=== PATIENT | female | born 1965 ===

== ENCOUNTER 2018-03-24 10:36 | Emergency (ER) | payer OTHER ==
[2018-03-24 11:02] VITALS: RESP 18; TEMP 98.2
--- NOTE | 2018-03-24 12:22 | C.PDOC ---
History Of Present Illness 52 year old female presents to the ED for evaluation of worsening right facial swelling. Patient reports recently arriving from [facility] 3 weeks ago, the swelling normally resolves with Zyrtec prescribed in [facility]. Last night the facial swelling began, she notes taking an unknown medication with no improvement. Denies fever, nausea, vomiting, headache, shortness of breath, chest pain, trouble swallowing or breathing or any other associated symptoms. Time Seen by Provider: 03/24/18 11:19 Chief Complaint (Nursing): Allergic Reaction History Per: Patient History/Exam Limitations: no limitations Onset/Duration Of Symptoms: Hrs Current Symptoms Are (Timing): Still Present Past Medical History Reviewed: Historical Data, Nursing Documentation, Vital Signs Vital Signs: Last Vital Signs Temp 98.2 F 03/24/18 10:53 Pulse 69 03/24/18 10:53 Resp 18 03/24/18 10:53 BP 126/76 03/24/18 10:53 Pulse Ox 96 03/24/18 10:53 Family History: States: Unknown Family Hx - Social History Hx Alcohol Use: Yes Hx Substance Use: No - Immunization History Hx Tetanus Toxoid Vaccination: No Hx Influenza Vaccination: No Hx Pneumococcal Vaccination: No Review Of Systems Constitutional: Positive for: Other (right facial swelling ). Negative for: Fever Cardiovascular: Negative for: Chest Pain Respiratory: Negative for: Shortness of Breath Gastrointestinal: Negative for: Nausea, Vomiting Neurological: Negative for: Headache Physical Exam - Physical Exam Appears: Well, Non-toxic, No Acute Distress Skin: Normal Color, Warm, Dry Head: Atraumatic, Normacephalic, Swelling (mild, to the right side of the face.) Eye(s): bilateral: Normal Inspection, PERRL, EOMI Nose: Normal Oral Mucosa: Moist Tongue: Normal Appearing, No Swelling Lips: Normal Appearing, No Swelling Neck: Normal ROM, Supple Neurological/Psych: Oriented x3, Normal Speech, Normal Motor, Normal Sensation, Normal Reflexes ED Course And Treatment O2 Sat by Pulse Oximetry: 96 (RA) Pulse Ox Interpretation: Normal Medical Decision Making Medical Decision Making: pt with multiple episodes right sided facial swelling that comes and goes for years with no known inciting factors, take otc antihistamines (zyrtec). and it resolves on its own not associated with trouble breathing or swallowing. pt has never seen a physician for this. [place] the [place] and brought to ed by daughter for evaluation of this, most recent episode started yesterday and not better after taking unknown otc medicine here. tx with benadryl and prednisone, keep diary,.f/u pmd Plan: -Benadryl Prednisone Progress/Update: Patient stable for discharge home. Prescribed Benadryl and Prednisone. Disposition Counseled Patient/Family Regarding: Diagnosis, Need For Followup, Rx Given - Disposition Referrals: [facility] [Outside] Disposition: HOME/ ROUTINE Disposition Time: 12:43 Condition: GOOD Additional Instructions: Por favor, tome los medicamentos segn lo prescrito. Mantener un diario de los alimentos consumidos. Medicamentos tpicos, jabones o cremas utilizados cuando esta hinchazn vuelve a ocurrir. Seguimiento romero pronto hilda sea posible en la clnica mdica. Regrese a la bhavin de emergencias por cualquier hinchazn en los labios, la lengua o la respiracin toruble o tragar. Please take medications as prescribed. Keepo diary of foods eaten. topical medications, soaps or creams used when this swelling happens again. Follow up as soon as possible in medical clinic. Return to ER for any swelling to lips, tongue, or toruble breathing or swallowing. Prescriptions: DiphenhydrAMINE [Benadryl] 25 mg PO Q6 #40 cap predniSONE [predniSONE Tab] 2 tab PO DAILY #8 tab Forms: Gen Discharge Inst Cameroonian, [employer] (Cameroonian) Print Language: YI - Clinical Impression Clinical Impression: Swelling of right side of face - PA / START UP SPECIALIST / Resident Statement MD/DO has reviewed & agrees with the documentation as recorded. - Scribe Statement The provider has reviewed the documentation as recorded by the Scribe (Allie Blas)
[2018-03-24 12:57] VITALS: BP 138/77; PULSE 75
[2018-03-24 13:03] VITALS: O2SAT 96
== END 2018-03-24 12:57 | disposition home or self-care (01) ==
LOC: C.ER 10:36
DX: R22.0 Localized swelling, mass and lump, head (principal)